=== PATIENT | male | born 1950 | race Caucasian/White ===

== ENCOUNTER 2022-05-09 07:42 | Outpatient (CLI) | payer MEDICARE, BC | END 2022-05-09 07:43 | disposition home or self-care (01) | LOC: CSHCT 07:42 | PROVIDERS: ATTEND Otolaryngology Plastic Surgery within the Head & Neck | DX: H90.3 Sensorineural hearing loss, bilateral (principal); Z98.890 Other specified postprocedural states | CPT/HCPCS: 70480 ==

== ENCOUNTER 2022-06-03 08:45 | Outpatient (CLI) | payer MEDICARE, BC ==
[2022-06-03 10:10] LABS: Mean Corpuscular HGB CONC 34.2 g/dL (32.0-36.0); Mean Corpuscular Hemoglobin 30.9 pg (27.0-33.0); Mean Corpuscular Volume 90.3 fl (81.2-95.1); Mean Platelet Volume 9.5 fl (7.4-10.4); Platelet Count 256 10x3/uL (150-450); RBC Distribution Width 13.4 % (11.5-14.5); Red Blood Cell (RBC) Count 4.53 10x6/uL (4.32-5.72); White Blood Cell (WBC) Count 4.7 10x3/uL (3.5-10.5)
[2022-06-03 10:21] LABS: INR-International Normal Ratio 2.4; PTT 36.2 sec (22.0-33.0); Prothrombin Time 25.1 sec (9.5-12.1)
[2022-06-03 10:31] LABS: Anion Gap 12 mmol/L (10-20); BUN (Urea Nitrogen) 18 mg/dL (8.4-25.7); Calc. Creatinine Clearance 0 mL/min (70-130); Calcium 8.8 mg/dL (7.8-10.44); Carbon Dioxide 25 mmol/L (23-31); Chloride 105 mmol/L (98-107); Estimated GFR 75; Glucose 82 mg/dL (80-115); Potassium 4.8 mmol/L (3.5-5.1); Sodium 137 mmol/L (136-145)
== END 2022-06-03 08:46 | disposition home or self-care (01) ==
LOC: CSHLAB 08:45
PROVIDERS: ATTEND Otolaryngology Plastic Surgery within the Head & Neck
DX: Z01.818 Encounter for other preprocedural examination (principal)
CPT/HCPCS: 80048; 85610; 85730; 93005; 93010